=== PATIENT | male | born 1955 | race Caucasian/White ===

== ENCOUNTER 2019-10-21 19:22 | Emergency (ER) | payer MEDICARE ==
[~2019-10-21] VITALS: Ht 172.7 cm; Wt 90.5 kg
[~2019-10-21 19:22] MED LIST: CELE100 PO; CHL25 PO; DICL2100G TP; LOSA50TA37 PO; TAMS-1 PO; TEMA15CA PO; TRAM50TA4 PO; [UNRECOGNIZED DRUG - CODE] TP
[2019-10-21] MEDS ORDERED: METF-960 PO (19:54)
[2019-10-21 19:56] LABS: GLUCOSE,POINT OF CARE 115 MG/DL (70-110)
[2019-10-21] MEDS ORDERED: PERTUSS(ACELL),DIPH,TET VAC/PF 0.5 ML VIAL IM ONE (22:45)
[2019-10-21] MEDS ORDERED: LIDOCAINE 1% 10 ML VIAL INJ ONE (22:45)
[2019-10-22] MEDS ORDERED: BACITRACIN 0.9 GM PACKET OINTMENT TP ONE
[2019-10-22 00:04] VITALS: BP 128/86
== END 2019-10-22 00:26 | disposition home or self-care (01) ==
LOC: EMS 19:23
DX: S01.81XA Laceration without foreign body of other part of head, initial encounter (principal); E11.9 Type 2 diabetes mellitus without complications; Z79.84 Long term (current) use of oral hypoglycemic drugs; W22.8XXA Striking against or struck by other objects, initial encounter; Y93.89 Activity, other specified; Y92.89 Other specified places as the place of occurrence of the external cause; Y99.8 Other external cause status
CPT/HCPCS: 12011; 82962; 90471; 90715; 99283; J3490

== ENCOUNTER 2019-10-26 08:02 | Emergency (ER) | payer MEDICARE ==
[~2019-10-26] VITALS: Ht 172.7 cm; Wt 90.5 kg
[~2019-10-26 08:02] MED LIST changes: +METF-960 PO
[2019-10-26 08:53] VITALS: BP 118/78
[2019-10-26 10:47] LABS: GLUCOSE,POINT OF CARE 202 MG/DL (70-110)
== END 2019-10-26 09:25 | disposition home or self-care (01) ==
LOC: EMS 08:05
DX: S01.81XD Laceration without foreign body of other part of head, subsequent encounter (principal); E11.9 Type 2 diabetes mellitus without complications; Z48.02 Encounter for removal of sutures; Z79.84 Long term (current) use of oral hypoglycemic drugs; Z79.899 Other long term (current) drug therapy; W45.8XXD Other foreign body or object entering through skin, subsequent encounter